=== PATIENT | male | born 1950 | race Native Hawaiian/Other Pacific Islander ===

== ENCOUNTER 2023-06-18 16:14 | Emergency (ER) | payer OTHER ==
[~2023-06-18] VITALS: Ht 170.2 cm; Wt 45.8 kg
[2023-06-18 16:52] VITALS: BP 124/61; TEMP 97.4
[2023-06-18 16:57] LABS: PLATELET COUNT 166 K/uL (142-355)
[2023-06-18 17:03] LABS: POTASSIUM 4.3 mmol/L (3.6-5.2)
[2023-06-19] MEDS ORDERED: AMLODIPINE BESYLATE PO (06:21)
[2023-06-19] MEDS ORDERED: BAYER ASPIRIN E81 MG PO (06:22)
[2023-06-19] MEDS ORDERED: ASCO500T18 PO (06:22)
[2023-06-19] MEDS ORDERED: LIPITOR40 MG PO (06:23)
[2023-06-19] MEDS ORDERED: DOK100 MG PO (06:24)
[2023-06-19] MEDS ORDERED: DONEPEZIL HYDRO10 MG PO (06:24)
[2023-06-19] MEDS ORDERED: MEMANTINE HYDRO10 MG PO (06:25)
[2023-06-19] MEDS ORDERED: KLOR-CON M2020 MEQ PO (06:26)
[2023-06-19] MEDS ORDERED: MIRTAZAPINE PO (06:26)
[2023-06-19] MEDS ORDERED: BUSPIRONE10 MG PO (06:31)
[2023-06-19] MEDS ORDERED: HCTZ PO (06:31)
[2023-06-19] MEDS ORDERED: TRIAMTERENE PO (06:31)
[2023-06-19] MEDS ORDERED: DIVALPROEX500 MG PO (06:32)
[2023-06-19] MEDS ORDERED: HALO5INJ3 IM (06:34)
[2023-07-01] MEDS ORDERED: NORVASC 5MG TAB PO (10:59)
[2023-07-01] MEDS ORDERED: ACET-206 PO (10:59)
[2023-07-01] MEDS ORDERED: ENTERIC COATED325 MG PO (11:00)
[2023-07-01] MEDS ORDERED: Atorvastatin Calcium PO (11:00)
[2023-07-01] MEDS ORDERED: ASCO500T18 PO (11:00)
[2023-07-01] MEDS ORDERED: DIVALPROEX500 MG PO (11:00)
[2023-07-01] MEDS ORDERED: DOCU100C10 PO (11:00)
[2023-07-01] MEDS ORDERED: TRIA37.541 PO (11:01)
[2023-07-01] MEDS ORDERED: MEMA10TA2 PO (11:01)
[2023-07-01] MEDS ORDERED: POTA20TA4 PO (11:01)
[2023-07-01] MEDS ORDERED: QUET25TA2 PO (11:01)
== END 2023-06-18 18:20 | disposition other institution (70) ==
LOC: ED 16:48
PROVIDERS: Family Medicine
DX: F03.90 Unspecified dementia, unspecified severity, without behavioral disturbance, psychotic disturbance, mood disturbance, and anxiety (principal); I10 Essential (primary) hypertension; F41.9 Anxiety disorder, unspecified; R62.7 Adult failure to thrive; Z02.79 Encounter for issue of other medical certificate
CPT/HCPCS: 36415; 80053; 85027; 87635; 93005; 99283; U0003